=== PATIENT | female | born 1985 | race Asian ===

== ENCOUNTER 2017-01-20 04:10 | Inpatient (IN) | payer SELFPAY ==
[~2017-01-20] VITALS: Ht 160 cm; Wt 64.9 kg
[2017-01-20] MEDS ORDERED: LACTATED RINGERS 1,000 ML IV SCH (05:48)
[2017-01-20] MEDS ORDERED: [UNRECOGNIZED DRUG - CODE] PO (05:48)
[2017-01-20] MEDS ORDERED: OXYTOCIN 20 UNITS/LR PREMIX 1,000 ML IV PRN (05:50)
[2017-01-20] MEDS ORDERED: METHYLERGONOVINE 0.2 MG/ML AMP IM PRN (05:50)
[2017-01-20] MEDS ORDERED: OXYTOCIN 10 UNITS/ML VIAL IM SCH (05:50)
[2017-01-20] MEDS ORDERED: CARBOPROST 250 MCG/ML AMP IM PRN (05:50)
[2017-01-20 06:23] LABS: BASOPHILS # (AUTO) 0.1 K/uL (0.00-0.22); BASOPHILS % (AUTO) 1.4 % (0.0-2.0); EOSINOPHILS # (AUTO) 0.1 K/uL (0-0.4); EOSINOPHILS % (AUTO) 1.5 % (0.0-4.0); HEMATOCRIT 39.8 % (36-48); HEMOGLOBIN 13.7 g/dL (12.0-16.0); LYMPHOCYTES # (AUTO) 1.7 K/uL (2.5-16.5); LYMPHOCYTES % (AUTO) 17.8 % (20.5-51.1); MEAN CORPUSCULAR HEMOGLOBIN 32 pg (27-31); MEAN CORPUSCULAR HGB CONC 34 g/dL (33-37); MEAN CORPUSCULAR VOLUME 94 fL (80-94); MONOCYTES # (AUTO) 0.5 K/uL (0.8-1.0); MONOCYTES % (AUTO) 5.4 % (1.7-9.3); NEUTROPHILS % (AUTO) 73.9 % (42.2-75.2); PLATELET COUNT (AUTO) 215 K/uL (140-450); RED BLOOD CELL COUNT(AUTO) 4.24 MIL/uL (4.20-5.40); WHITE BLOOD COUNT (AUTO) 9.4 K/uL (4.8-10.8)
[2017-01-20] MEDS ORDERED: OXYTOCIN 20 UNITS/LR PREMIX 1,000 ML IV ONE (07:13)
[2017-01-20] MEDS ORDERED: OXYTOCIN 10 UNITS/ML VIAL ONE (07:14)
--- NOTE | 2017-01-20 09:01 | NUR ---
PATIENT HAS BEEN SCREENED AND CATEGORIZED LOW NUTRITION RISK. PATIENT WILL BE SEEN WITHIN 7 DAYS OF ADMISSION. 01/26/[address]
[2017-01-20] MEDS ORDERED: BENZOCAINE/MENTHOL 20%-0.5% 60 GM CAN TP PRN (09:45)
[2017-01-20] MEDS ORDERED: MEASLES, MUMPS, AND RUBELLA 1 VIAL SQVAC PRN (09:45)
[2017-01-20] MEDS ORDERED: HYDROcodone/APAP 5/325 MG 1 TAB TAB PO PRN (09:45)
[2017-01-20] MEDS ORDERED: TEMAZEPAM 15 MG CAP PO PRN (09:45)
[2017-01-20] MEDS ORDERED: oxyCODONE/APAP 5/325 MG 1 TAB TAB PO PRN (09:45)
[2017-01-20] MEDS ORDERED: WITCH HAZEL 40 PAD PACKAGE TP PRN (09:45)
[2017-01-20] MEDS ORDERED: IBUPROFEN 800 MG TAB PO PRN (09:45)
[2017-01-20] MEDS ORDERED: DOCUSATE SOD/SENNA 50/8.6 MG 1 TAB PO SCH (21:00)
[2017-01-21 06:16] LABS: HEMATOCRIT 35.6 % (36-48); HEMOGLOBIN 12.6 g/dL (12.0-16.0)
== END 2017-01-21 14:30 | disposition home or self-care (01) | DRG 775 ==
LOC: MFCC 04:10
PROVIDERS: ADMIT Obstetrics & Gynecology; ATTEND Obstetrics & Gynecology
PROC: 10E0XZZ Delivery of Products of Conception, External Approach (ICD-10-PCS; principal; 2017-01-20)
PROC: 0HQ9XZZ Repair Perineum Skin, External Approach (ICD-10-PCS; 2017-01-20)
DX: O77.0 Labor and delivery complicated by meconium in amniotic fluid (principal); O70.0 First degree perineal laceration during delivery; Z3A.39 39 weeks gestation of pregnancy; Z37.0 Single live birth
CPT/HCPCS: 36415; 51702; 59409; 85018; 85025; 86592; 86886; 86900; 86901; J2590; J7120